=== PATIENT | male | born 1990 | race Caucasian/White ===

== ENCOUNTER 2017-10-25 23:03 | Observation (INO) ==
[2017-10-25] MEDS ORDERED: Sod Chloride 0.9% Inj 1,000 ML IV.SIG ONE (23:45)
[2017-10-26 00:07] LABS: Baso # (Auto) 0.1 th/mm3 (0.0-0.2); Baso % (Auto) 0.4 % (0.0-2.0); Eos # (Auto) 0.3 th/mm3 (0.0-0.4); Eos % (Auto) 1.3 % (0.0-4.0); Hematocrit 52.7 % (39.0-51.0); Hemoglobin 17.3 gm/dL (13.0-17.0); Lymph # (Auto) 5.9 th/mm3 (1.0-4.8); Lymph % (Auto) 26.4 % (9.0-44.0); Mean Corpuscular HGB Conc 32.9 % (32.0-36.0); Mean Corpuscular Hemoglobin 30.6 pg (27.0-34.0); Mean Corpuscular Volume 93.3 fL (80.0-100.0); Mean Platelet Volume 8.8 fL (7.0-11.0); Mono # (Auto) 1.9 th/mm3 (0.0-0.9); Mono % (Auto) 8.3 % (0.0-8.0); Neut # (Auto) 14.2 th/mm3 (1.8-7.7); Neut % (Auto) 63.6 % (16.0-70.0); Platelet Count 252 th/mm3 (150-450); Red Blood Count 5.65 mil/mm3 (4.50-5.90); Red Cell Distribution Width 13.9 % (11.6-17.2); White Blood Count 22.4 th/mm3 (4.0-11.0)
--- NOTE | 2017-10-26 00:27 | XR ---
EXAM DATE: 10/26/2017 12:11 AM EDT AGE/SEX: 27 years / Male INDICATIONS: Shortness of breath on an unresponsive patient who may have had a seizure. CLINICAL DATA: This is the patient's initial encounter. Patient reports that signs and symptoms have been present for 1 day and indicates a pain score of Nonresponsive. MEDICAL/SURGICAL HISTORY: Non-responsive. Non-responsive. COMPARISON: No prior exams available for comparison. FINDINGS: A single AP view of the chest demonstrates the lungs to be symmetrically aerated without evidence of mass, infiltrate or effusion. The cardiomediastinal contours are unremarkable. Osseous structures a re intact. CONCLUSION: Negative examination. Electronically signed by: Jhonathan Escobar MD 10/26/2017 12:25 AM EDT
[2017-10-26 00:30] LABS: Alanine Aminotransferase 50 U/L (12-78); Albumin 4.5 g/dL (3.4-5.0); Alkaline Phosphatase 67 U/L (45-117); Anion Gap 14 meq/L (5-15); Aspartate Aminotransferase 35 U/L (15-37); Blood Urea Nitrogen 15 mg/dL (7-18); Calcium 8.7 mg/dL (8.5-10.1); Carbon Dioxide 19.1 meq/L (21.0-32.0); Chloride 107 meq/L (98-107); Creatine Kinase 248 U/L (39-308); Glomerular Filtration Rate 80 mL/min (>89); Glucose,Random 93 mg/dL (74-106); Sodium 140 meq/L (136-145); Total Protein 8.3 g/dL (6.4-8.2)
[2017-10-26] MEDS ORDERED: Sod Chloride 0.9% Inj 1,000 ML IV.SIG ONE (00:48)
[2017-10-26 00:56] LABS: Eosinophils 2 % (0-4); Lymphocytes 25 % (9-44); Monocytes 6 % (0-8)
[2017-10-26 00:57] LABS: Platelet Estimate Normal (Normal); Platelet Morphology Normal (Normal)
[2017-10-26 00:58] LABS: RBC Morphology Normal (Normal)
--- NOTE | 2017-10-26 02:09 | CT ---
EXAM DATE: 10/26/2017 2:03 AM EDT AGE/SEX: 27 years / Male INDICATIONS: Witnessed seizure. CLINICAL DATA: This is the patient's initial encounter. Patient reports that signs and symptoms have been present for 1 day and indicates a pain score of 0/10. MEDICAL/SURGICAL HISTORY: Seizures. None. RADIATION DOSE: 38.45 CTDI (mGy) COMPARISON: No prior exams available for comparison. TECHNIQUE: CT of the head without contrast. Using automated exposure control and adjustment of the mA and/or kV according to patient size, radiation dose was kept as low as reasonably achievable to ob tain optimal diagnostic quality images. DICOM format image data is available electronically for revi ew and comparison. FINDINGS: Cerebrum: The ventricles are normal for age. No evidence of midline shift, mass lesion, hemorrhage or acute infarction. No extraaxial fluid collections are seen. Posterior Fossa: The cerebellum and brainstem are intact. The 4th ventricle is midline. The cerebe llopontine angle is unremarkable. Extracranial: The visualized portion of the orbits is intact. Skull: The calvaria is intact. No evidence of skull fracture. CONCLUSION: 1. Negative CT Head non contrast. . Electronically signed by: Jhonathan Escobar MD 10/26/2017 2:08 AM EDT
[2017-10-26] MEDS ORDERED: Lidocaine 1%/Epinephrine 1:100,000 Inj 50 ML Vial INFILTRATN ONE (02:33)
--- NOTE | 2017-10-26 03:04 | ED ---
HPI General Chief complaint: Seizure Stated complaint: Poss Seizures Time Seen by Provider: 10/25/17 23:43 Source: EMS Mode of arrival: wheelchair Limitations: altered mental status History of Present Illness HPI narrative: Patient is a 27-year-old male with history of withdrawal seizures that was brought into the emergency department after having a third seizure. He actually had 2 seizures at home second 1 which resulted to a laceration of his left eyebrow area and while he was here in the emergency department he had another seizure that resulted. Patient was postictal. We talked to his mom over the phone who told us that he was on a court order rehab and he left. He has had several previous admissions for rehab. He does have chronic alcohol and drug abuse problems. Patient postictal here not providing information. Related Data Home Medications Medication Instructions Recorded Confirmed No Known Home Medications 10/25/17 10/25/17 Allergies Allergy/AdvReac Type Severity Reaction Status Date / Time No Known Allergies Allergy Unverified 10/25/17 23:16 Review of Systems ROS: all other systems reviewed are negative [facility] Medical History Medical History Seizure (Acute) Surgical History Surgical History No history of previous surgery (Acute) Family History Family History Other Family history unknown Social History Social History Substance History: No History of Abuse Second Hand Smoke Exposure: Yes Smoking Status: Current every day smoker Tobacco Type: Cigarettes How Often Do You Have a Drink Containing Alcohol: 4 or more times a week Recent Travel in [facility] within the Last 8 Weeks: No Recent Out of Country Travel within the Last 8 Weeks: No Immunization History Tetanus Immunization: Unsure Hx Influenza Vaccine This Season: Yes Exam Narrative Exam Narrative: GENERAL: Postictal SKIN: Focused skin assessment warm/dry. HEAD: Laceration left supraorbital area. Normocephalic. EYES: Pupils equal and round. No scleral icterus. No injection or drainage. ENT: No nasal bleeding or discharge. Mucous membranes pink and moist. NECK: Trachea midline. No JVD. CARDIOVASCULAR: Regularrhythm. Tachycardia. no murmur appreciated. RESPIRATORY: No accessory muscle use. Clear to auscultation. Breath sounds equal bilaterally. GASTROINTESTINAL: Abdomen soft, non-tender, nondistended. Hepatic and splenic margins not palpable. MUSCULOSKELETAL: No obvious deformities. No clubbing. No cyanosis. No edema. NEUROLOGICAL: Awake and alert. No obvious cranial nerve deficits. Motor grossly within normal limits. Normal speech. PSYCHIATRIC: Unable to assess due to altered mental status Procedures Laceration Laceration 1: Site: face Side (If applicable): left Size (cm): 2 Description: linear Depth: simple, single layer Anesthetic used: with epi Anesthesia technique:: local infiltration Amount (mL): 5 Pre-repair:: wound explored and irrigated extensively Skin layer closed with: other (PROLENE) Size (cm): 5-0 Number of sutures:: 5 Technique:: simple, interrupted Course Hospital Course: Patient was given Ativan IV with resolution of his seizure. He was also given a loading dose of Keppra. He does have a leukocytosis without left shift likely secondary to acute phase reactant. Laceration the left supraorbital area was repaired by mid-level practitioner. Initial Documented Vital Signs Temperature 98.2 F 10/25/17 23:13 Pulse Rate 92 H 10/25/17 23:13 Respiratory Rate 16 10/25/17 23:13 Blood Pressure 132/85 10/25/17 23:13 Pulse Oximetry 98 10/25/17 23:13 Last Documented Vital Signs Temperature 98.2 F 10/25/17 23:54 Pulse Rate 67 10/26/17 03:16 Respiratory Rate 20 10/26/17 03:16 Blood Pressure 108/49 L 10/26/17 03:16 Pulse Oximetry 98 10/26/17 03:16 Critical Care Time Critical Care Time: Yes Total Critical Care Time: 30 Attestation: Aggregate critical care time was 30 minutes. Time to perform other separately billable procedures was not included in the critical care time. My time did not include minutes spent treating any other patients simultaneously or on activities that did not directly contribute to the patient's treatment. The services I provided to this patient were to treat and/or prevent clinically significant deterioration that could result in: Loss of current lifestyle and permanent disability. I provided critical care services requiring my management, as noted below: Chart data review, documentation time, medication orders and management, vital sign assessments/reviewing monitor data, ordering and reviewing lab tests, ordering and interpreting/reviewing x-rays and diagnostic studies, care of the patient and discussion of the patient with the admitting physicians. Medical Decision Making MDM Narrative Medical decision making narrative: Patient postictal with 3 separate seizures resolving to left eyebrow laceration that was sutured in the emergency department he was given IV Ativan initially and then Keppra loading dose as he was supposed to be on Keppra but is noncompliant. Discussed with his mom over the phone that lives in [facility] who requested placed the patient a Med[facility] Billyman her that he is not a candidate since he is not suicidal or homicidal. Patient became more alert after he was admitted and monitored for several hours and denied suicidal ideation. Medical Screen Exam Complete: Yes Emergency Medical Condition: Yes Lab Data Lab results reviewed: Yes I reviewed the patient's lab results. Result diagrams: 10/25/17 23:45 10/25/17 23:45 Lab Results 10/25/17 10/25/17 10/26/17 Range/Units 23:45 23:45 05:15 WBC 22.4 H (4.0-11.0) th/mm3 RBC 5.65 (4.50-5.90) mil/mm3 Hgb 17.3 H (13.0-17.0) gm/dL Hct 52.7 H (39.0-51.0) % MCV 93.3 (80.0-100.0) fL MCH 30.6 (27.0-34.0) pg MCHC 32.9 (32.0-36.0) % RDW 13.9 (11.6-17.2) % Plt Count 252 (150-450) th/mm3 MPV 8.8 (7.0-11.0) fL Prelim Diff (Auto) Slide review pending Neut % (Auto) 63.6 (16.0-70.0) % Lymph % (Auto) 26.4 (9.0-44.0) % [place] % (Auto) 8.3 H (0.0-8.0) % Eos % (Auto) 1.3 (0.0-4.0) % Baso % (Auto) 0.4 (0.0-2.0) % Neut # (Auto) 14.2 H (1.8-7.7) th/mm3 Lymph # (Auto) 5.9 H (1.0-4.8) th/mm3 [place] # (Auto) 1.9 H (0.0-0.9) th/mm3 Eos # (Auto) 0.3 (0.0-0.4) th/mm3 Baso # (Auto) 0.1 (0.0-0.2) th/mm3 WBC Differential Manual diff final Seg Neuts % (Manual) 64 (16-70) % Band Neuts % (Manual) 2 (0-6) % Lymphocytes % (Manual) 25 (9-44) % Monocytes % (Manual) 6 (0-8) % Eosinophils % (Manual) 2 (0-4) % Basophils % (Manual) 1 (0-2) % Abs Neuts (Manual) 14.8 H (1.8-7.7) th/mm3 Differential Comment . Platelet Estimate Normal (Normal) Platelet Morphology Normal (Normal) RBC Morphology Normal (Normal) Sodium 140 (136-145) meq/L Potassium (3.5-5.1) meq/L Chloride 107 (98-107) meq/L Carbon Dioxide 19.1 L (21.0-32.0) meq/L Anion Gap 14 (5-15) meq/L BUN 15 (7-18) mg/dL Creatinine 1.10 (0.60-1.30) mg/dL Estimated GFR 80 L (>89) mL/min Random Glucose 93 (74-106) mg/dL Calcium 8.7 (8.5-10.1) mg/dL Total Bilirubin 0.5 (0.2-1.0) mg/dL AST 35 (15-37) U/L ALT 50 (12-78) U/L Alkaline Phosphatase 67 (45-117) U/L Total Creatine Kinase 248 (39-308) U/L Total Protein 8.3 H (6.4-8.2) g/dL Albumin 4.5 (3.4-5.0) g/dL Urine Opiates Screen Neg (Neg) Ur Barbiturates Screen Neg (Neg) Ur Amphetamines Screen Neg (Neg) U Benzodiazepines Scrn Neg (Neg) Urine Cocaine Screen Neg (Neg) U Cannabinoids Screen Pos H (Neg) Imaging Data Radiologist's impression: Chest X-Ray 10/25/17 23:45 CONCLUSION: Negative examination. Head CT 10/26/17 00:01 CONCLUSION: 1. Negative CT Head non contrast. . Discharge Plan Discharge Disposition Patient Disposition: 30 Still Patient Discharge Condition Condition: Stable Discharge Details Diagnosis: Epileptic seizure, Contusion of head, Face lacerations, Substance abuse, Non compliance w medication regimen Physicians Team ED Provider: Ryan Nguyen Primary Care Provider: Primary Care Annette Ramirez Attending Provider: Jasmeet Naqvi Discharge Interventions Interventions: Vital Signs Last Done: 10/26/17 03:16 Status ED Status: Admitted Observation Patient
--- NOTE | 2017-10-26 04:23 | ED ---
HPI General Chief Complaint: Seizure Stated Complaint: Poss Seizures Time Seen by Provider: 10/25/17 23:43 Source: family and EMS Mode of arrival: ambulatory Limitations: altered mental status History of Present Illness HPI Narrative: The patient is a 27-year-old male with medical history significant for alcohol and drug abuse that had a seizure while here in the emergency department. He was the third seizure today. Paramedics had gone twice to his house for seizure and the second time brought him to the emergency department for evaluation. The patient was laying the gurney and went to the bathroom where he had another seizure. He has a injury on the left supraorbital area with a laceration however that was sustained on his second seizure at home which was the one that brought him here to the emergency department. I spoke to his mother who lives in [facility] and she stated that he was in the court order rehab which she left without completing. Mom asked us to place him under Medrano act by explained to her that he does not meet that criteria. I was unable to assess the patient's mentation as he has has been post ictal since he has been here. He was combative initially but that could be likely secondary to his post ictal state. MD complaint: seizure Seizure History: known seizure disorder, history of withdrawal seizures and history of non-compliance with treatment Place: home and other (Here in the ED) Possible Precipitating Event: head injury (Left supraorbital) Related Data Home Medications Medication Instructions Recorded Confirmed No Known Home Medications 10/25/17 10/25/17 Previous Rx's Medication Instructions Recorded levetiracetam [Keppra] 500 mg PO BID 90 Days #180 tab 10/26/17 Allergies Allergy/AdvReac Type Severity Reaction Status Date / Time No Known Allergies Allergy Unverified 10/25/17 23:16 Review of Systems ROS Unobtainable ROS Unobtainable: unobtainable due to mental status [facility] Medical History Medical History Seizure (Acute) Surgical History Surgical History No history of previous surgery (Acute) Family History Family History Other Family history unknown Social History Social History Substance History: No History of Abuse Second Hand Smoke Exposure: Yes Smoking Status: Current every day smoker Tobacco Type: Cigarettes How Often Do You Have a Drink Containing Alcohol: 4 or more times a week Recent Travel in [facility] within the Last 8 Weeks: No Recent Out of Country Travel within the Last 8 Weeks: No Immunization History Tetanus Immunization: Unsure Hx Influenza Vaccine This Season: Yes Exam Narrative Exam Narrative: GENERAL: Postictal combative not responding to questions moving all extremities. SKIN: Focused skin assessment warm/dry. HEAD: Left supraorbital laceration above the eyebrow.. Normocephalic. EYES: Pupils equal and round. No scleral icterus. No injection or drainage. ENT: No nasal bleeding or discharge. Mucous membranes pink and moist. NECK: Trachea midline. No JVD. CARDIOVASCULAR: Regular rate and rhythm. No murmur appreciated. RESPIRATORY: No accessory muscle use. Clear to auscultation. Breath sounds equal bilaterally. GASTROINTESTINAL: Abdomen soft, non-tender, nondistended. Hepatic and splenic margins not palpable. MUSCULOSKELETAL: No obvious deformities. No clubbing. No cyanosis. No edema. NEUROLOGICAL: Postictal state. No obvious cranial nerve deficits. Moves all extremities without signs of neurologic deficit. PSYCHIATRIC: Appropriate mood and affect; insight and judgment normal. Course Hospital Course: Patient was given Ativan IV with resolution of his seizure. He was also given a loading dose of Keppra. He does have a leukocytosis without left shift likely secondary to acute phase reactant. Laceration the left supraorbital area was repaired by mid-level practitioner. Reevaluation(s) Reevaluation #1: Patient is resting comfortably in no distress. Stable vitals at this time. Time: 01:26 Initial Documented Vital Signs Temperature 98.2 F 10/25/17 23:13 Pulse Rate 92 H 10/25/17 23:13 Respiratory Rate 16 10/25/17 23:13 Blood Pressure 132/85 10/25/17 23:13 Pulse Oximetry 98 10/25/17 23:13 Last Documented Vital Signs Temperature 98.2 F 10/25/17 23:54 Pulse Rate 70 10/26/17 12:18 Respiratory Rate 16 10/26/17 12:18 Blood Pressure 128/60 10/26/17 12:18 Pulse Oximetry 96 10/26/17 12:18 Medical Decision Making MDM Narrative Medical decision making narrative: Seizure likely secondary to noncompliance with medications and drug abuse. UDS is pending at this time. I spoke with the patient's mom in [facility] who stated that he just left the court ordered Medical Screen Exam Complete: Yes Emergency Medical Condition: Yes Lab Data Result diagrams: 10/25/17 23:45 10/25/17 23:45 Lab Results 10/25/17 10/25/17 10/26/17 Range/Units 23:45 23:45 05:15 WBC 22.4 H (4.0-11.0) th/mm3 RBC 5.65 (4.50-5.90) mil/mm3 Hgb 17.3 H (13.0-17.0) gm/dL Hct 52.7 H (39.0-51.0) % MCV 93.3 (80.0-100.0) fL MCH 30.6 (27.0-34.0) pg MCHC 32.9 (32.0-36.0) % RDW 13.9 (11.6-17.2) % Plt Count 252 (150-450) th/mm3 MPV 8.8 (7.0-11.0) fL Prelim Diff (Auto) Slide review pending Neut % (Auto) 63.6 (16.0-70.0) % Lymph % (Auto) 26.4 (9.0-44.0) % [place] % (Auto) 8.3 H (0.0-8.0) % Eos % (Auto) 1.3 (0.0-4.0) % Baso % (Auto) 0.4 (0.0-2.0) % Neut # (Auto) 14.2 H (1.8-7.7) th/mm3 Lymph # (Auto) 5.9 H (1.0-4.8) th/mm3 [place] # (Auto) 1.9 H (0.0-0.9) th/mm3 Eos # (Auto) 0.3 (0.0-0.4) th/mm3 Baso # (Auto) 0.1 (0.0-0.2) th/mm3 WBC Differential Manual diff final Seg Neuts % (Manual) 64 (16-70) % Band Neuts % (Manual) 2 (0-6) % Lymphocytes % (Manual) 25 (9-44) % Monocytes % (Manual) 6 (0-8) % Eosinophils % (Manual) 2 (0-4) % Basophils % (Manual) 1 (0-2) % Abs Neuts (Manual) 14.8 H (1.8-7.7) th/mm3 Differential Comment . Platelet Estimate Normal (Normal) Platelet Morphology Normal (Normal) RBC Morphology Normal (Normal) Sodium 140 (136-145) meq/L Potassium (3.5-5.1) meq/L Chloride 107 (98-107) meq/L Carbon Dioxide 19.1 L (21.0-32.0) meq/L Anion Gap 14 (5-15) meq/L BUN 15 (7-18) mg/dL Creatinine 1.10 (0.60-1.30) mg/dL Estimated GFR 80 L (>89) mL/min Random Glucose 93 (74-106) mg/dL Calcium 8.7 (8.5-10.1) mg/dL Total Bilirubin 0.5 (0.2-1.0) mg/dL AST 35 (15-37) U/L ALT 50 (12-78) U/L Alkaline Phosphatase 67 (45-117) U/L Total Creatine Kinase 248 (39-308) U/L Total Protein 8.3 H (6.4-8.2) g/dL Albumin 4.5 (3.4-5.0) g/dL Urine Opiates Screen Neg (Neg) Ur Barbiturates Screen Neg (Neg) Ur Amphetamines Screen Neg (Neg) U Benzodiazepines Scrn Neg (Neg) Urine Cocaine Screen Neg (Neg) U Cannabinoids Screen Pos H (Neg) Imaging Data Radiologist's impression: Chest X-Ray 10/25/17 23:45 CONCLUSION: Negative examination. Head CT 10/26/17 00:01 CONCLUSION: 1. Negative CT Head non contrast. . Discharge Plan Discharge Disposition Patient Disposition: 30 Still Patient Discharge Condition Condition: Stable Discharge Order Discharge Orders: Discharge Order (Routine); Ordered 10/26/17 Ordered By: Jasmeet Naqvi Discharge Details Anticipated Discharge Date: 10/26/17 Diagnosis: Epileptic seizure, Contusion of head, Face lacerations, Substance abuse, Non compliance w medication regimen Physicians Team ED Provider: Ryan Nguyen Primary Care Provider: Primary Care Annette Ramirez Attending Provider: Jasmeet Naqvi Status ED Status: Left Department Discharge Information Discharge Date/Time: 10/26/17 15:22
[2017-10-26] MEDS ORDERED: Acetaminophen 325 MG Tablet PO PRN (04:35)
[2017-10-26] MEDS ORDERED: Sod Chloride 0.9% Inj 1,000 ML IV.CONT SCH (04:45)
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
[2017-10-26 05:31] LABS: Amphetamine Screen,Urine Neg (Neg); Barbiturate Screen,Urine Neg (Neg); Cannabinoid Screen,Urine Pos (Neg); Cocaine Screen,Urine Neg (Neg)
[2017-10-26 05:32] LABS: Opiate Screen,Urine Neg (Neg)
[2017-10-26] MEDS ORDERED: levETIRAcetam 500 MG Tablet PO SCH (09:00)
--- NOTE | 2017-10-26 14:00 | P.PN ---
Subjective Interval history: awake and alert denies any ehadaches, nausea or vomting now admits to non compliance with medications admits to smoking weed every day but denies any other drug use denies alcohol use I'I'm going to change, ready to leave" per staff was threatening to leave all morning Physical Exam Vital signs: Vital Signs 10/25/17 23:13 10/25/17 23:54 10/26/17 03:16 Temperature 98.2 F 98.2 F Pulse Rate 92 H 74 67 Respiratory Rate 16 20 20 Blood Pressure 132/85 135/56 L 108/49 L Pulse Oximetry 98 98 98 10/26/17 07:00 10/26/17 09:14 10/26/17 12:18 Temperature Pulse Rate 62 70 Respiratory Rate 12 16 Blood Pressure 115/53 L 128/60 Pulse Oximetry 98 96 Intake & Output 10/25/17 10/26/17 10/26/17 18:59 06:59 18:59 Intake Total 2105 / 2105 400 / 400 Balance 2105 / 2105 400 / 400 Weight 85 kg Intake: IV 2105 / 2105 400 / 400 NS Inj 1,000 ML @ 75 mls/hr IV. 400 / 400 CONT .[id number] [place] Rx#:[id number] NS Inj 1,000 ML @ Wide Open IV. 1999 / 1999 SIG BOLUS ONE Rx#:[id number] Keppra Inj 500 MG In NS Inj 100 105 / 105 ML @ 400 mls/hr IV.SIG ONCE ONE Rx#:[id number] Narrative: awake and alert left mile forehead swelling adn erythema- sutures intact dry anicteric no nuchalr igidity'lungs'clear regular rhythma bdomen soft, nontender extremities no edema a x 0 x 3 CN intact 5/5 nara grossly no sensory deficits gait steady - Urinary Catheter Management Straight Cath placed during this visit: yes Reason for continuing: Not indwelling catheter Insertion date: 10/26/17 Insertion time: 05:20 Results - Labs CBC & Chem 7: 10/25/17 23:45 10/25/17 23:45 Laboratory Results - last 24 hr 10/25/17 10/25/17 10/26/17 23:45 23:45 05:15 WBC 22.4 H RBC 5.65 Hgb 17.3 H Hct 52.7 H MCV 93.3 MCH 30.6 MCHC 32.9 RDW 13.9 Plt Count 252 MPV 8.8 Prelim Diff (Auto) Slide review pending Neut % (Auto) 63.6 Lymph % (Auto) 26.4 Dixon % (Auto) 8.3 H Eos % (Auto) 1.3 Baso % (Auto) 0.4 Neut # (Auto) 14.2 H Lymph # (Auto) 5.9 H Dixon # (Auto) 1.9 H Eos # (Auto) 0.3 Baso # (Auto) 0.1 WBC Differential Manual diff final Seg Neuts % (Manual) 64 Band Neuts % (Manual) 2 Lymphocytes % (Manual) 25 Monocytes % (Manual) 6 Eosinophils % (Manual) 2 Basophils % (Manual) 1 Abs Neuts (Manual) 14.8 H Differential Comment . Platelet Estimate Normal Platelet Morphology Normal RBC Morphology Normal Sodium 140 Potassium Chloride 107 Carbon Dioxide 19.1 L Anion Gap 14 BUN 15 Creatinine 1.10 Estimated GFR 80 L Random Glucose 93 Calcium 8.7 Total Bilirubin 0.5 AST 35 ALT 50 Alkaline Phosphatase 67 Total Creatine Kinase 248 Total Protein 8.3 H Albumin 4.5 Urine Opiates Screen Neg Ur Barbiturates Screen Neg Ur Amphetamines Screen Neg U Benzodiazepines Scrn Neg Urine Cocaine Screen Neg U Cannabinoids Screen Pos H - Imaging Impressions Chest X-Ray 10/25/17 23:45 CONCLUSION: Negative examination. Head CT 10/26/17 00:01 CONCLUSION: 1. Negative CT Head non contrast. . Assessment and Plan - Plan 27 yers old right handed male 1. Witnessed seizure- admits to non compliance Patient with history of seizure disorder Noncompliant with Keppra Resume Keppra- script given Seizure precautions told no driving for 6 montnhs, avoid heights 2. ? drug/alcohol abuse -patient admits to "weed everyday " -denid crhonic use of alcohol at present Patient left court mandated rehab in [place] in September Adamantly denies substance abuse Urine drug screen pending Seizure may be secondary to drug/alcohol use - counselled extensively Leukocytosis- may be reactive - some erythema- left supraorbital area - will start him on Kelflex 500 mg po tid x 7 days His mom apparently called and wanted me to call her in front of patient I asked his permission from patient if he wants me to talk to his Mom- patient adamantly says no FEN Regular diet Electrolytes: Monitor and replete as needed DC home today OP ff up - patient here visiting from [place] will write script for Keppra 500 mg po bid- patient states he has lttle left Advise to come to ER or any urgent care clinic for suture removal in 5 fyas
== END 2017-10-26 15:23 | disposition home or self-care (01) ==
LOC: NEDA 23:03 → NEPC 23:03 → NEDH 10-26 06:18
PROVIDERS: ADMIT Internal Medicine; ATTEND Internal Medicine